=== PATIENT | female | born 1995 | race African-American/Black ===

== ENCOUNTER 2025-04-21 01:11 | Emergency (ER) | payer BC ==
[~2025-04-21] VITALS: Ht 160 cm; Wt 100.0 kg
[2025-04-21 01:18] VITALS: O2SAT 98
[2025-04-21 02:18] LABS: BASOPHILS % 0.9 % (0.0-2.0); EOSINOPHILS % 3.4 % (0.0-5.0); HEMATOCRIT. 33.4 % (36.0-48.0); HEMOGLOBIN. 10.8 g/dL (12.0-16.0); LYMPHOCYTES % 19.9 % (20.0-50.0); MEAN PLATELET VOLUME 9.2 fl (7.4-10.4); MONOCYTES % 10.3 % (2.0-8.0); NEUTROPHILS % 65.5 % (40.0-76.0); PLATELET 228 x1000/uL (130-400); RED BLOOD CELL COUNT 4.46 mill/uL (4.2-5.4); RED CELL DISTRIBUTION WIDTH 17.2 % (11.6-14.6)
[2025-04-21 02:23] LABS: CLARITY URINE CLEAR (CLEAR); COLOR URINE YELLOW (YELLOW); GLUCOSE URINE NEGATIVE (NEGATIVE); KETONES URINE NEGATIVE (NEGATIVE); LEUKOCYTE ESTERASE URINE TRACE (NEGATIVE); NITRITE URINE NEGATIVE (NEGATIVE); OCCULT BLOOD URINE 3+ (NEGATIVE); PH URINE 6.5 (4.5-8.0); PROTEIN URINE NEGATIVE (NEGATIVE); SPECIFIC GRAVITY URINE 1.008 (1.005-1.030); UROBILINOGEN URINE 0.2 E.U./dL (0.2-1.0)
[2025-04-21 02:35] LABS: BACTERIA URINE 1+; SQUAMOUS EPITHELIAL CELL URINE RARE /lpf (RARE/1+)
[2025-04-21 02:42] LABS: HCG SCREEN NEGATIVE
[2025-04-21 02:45] LABS: CREATININE 0.8 mg/dL (0.6-1.0)
[2025-04-21 02:46] LABS: ETHANOL BLOOD < 10 mg/dL (<10); TROPONIN I HIGH SENSITIVITY < 4 ng/L (3.0-34); UREA NITROGEN BLOOD 11 mg/dL (9-23)
[2025-04-21 02:47] LABS: ASPARTATE AMINOTRANSFERASE 17 IU/L (<34)
[2025-04-21 02:48] LABS: BILIRUBIN DIRECT < 0.1 mg/dL (<=3.0); BILIRUBIN TOTAL 0.3 mg/dL (0.1-1.0); PROTEIN TOTAL 7.5 g/dL (6.0-8.3)
[2025-04-21] MEDS: SODIUM CHLORIDE 0.9% 1,000 ML IV ONE (02:50)
[2025-04-21 03:45] VITALS: BP 114/73; PULSE 73; RESP 15; TEMP 36.8; O2SAT 100
[2025-04-21 04:47] LABS: TROPONIN I HIGH SENSITIVITY < 4 ng/L (3.0-34)
== END 2025-04-21 05:11 | disposition home or self-care (01) ==
LOC: ER 01:11
DX: R55 Syncope and collapse (principal); R07.89 Other chest pain; I10 Essential (primary) hypertension
CPT/HCPCS: 80076; 80048; 81003; 80320; 84703; 83690; 83735; 85025; 85379; 84484; 36415; 71045; 70450; 93005; 96360; 99285; J7030; Z7610 ×3; G0480